=== PATIENT | male | born 1970 | race Two or more races ===

== ENCOUNTER → 2024-07-22 | Outpatient (CLI) | payer BC, SELFPAY ==
[2024-07-22 08:02] LABS: Collection Type, Urine Clean Catch
[2024-07-22 08:23] LABS: Basophils % (Auto) 1 % (0-2.5); Eosinophils # (Auto) 0.1 Thou/mm3 (0.0-0.5); Eosinophils % (Auto) 2 % (0-10); Hematocrit 44.3 % (41.0-53.0); Immature Granulocytes % (Auto) 0 % (0-0); Immature Granulocytes Auto 0.02 Thou/mm3 (0.00-0.00); Lymphocytes # (Auto) 1.6 Thou/mm3 (1.0-4.8); Lymphocytes % (Auto) 32 % (10-50); Mean Corpuscular HGB Conc 36.1 g/dl (31.0-37.0); Mean Corpuscular Hemoglobin 30.9 pg (25.0-35.0); Mean Corpuscular Volume 86 fL (80-100); Monocytes # (Auto) 0.5 Thou/mm3 (0.0-0.8); Monocytes % (Auto) 9 % (0-12); Neutrophils # (Auto) 2.8 Thou/mm3 (1.8-7.7); Neutrophils % (Auto) 56 % (37-80); Nucleated Red Blood Cell % 0 /100 WBC (0); Platelet Count 198 Thou/mm3 (140-440); RDW Standard Deviation 39.9 fL (35.1-43.9); Red Blood Count 5.18 Miln/mm3 (4.50-5.90); White Blood Count 5.1 Thou/mm3 (3.8-10.6)
[2024-07-22 08:36] LABS: Glucose Estimated Average 108 mg/dL (80-131); Hemoglobin A1C 5.4 % Hgb (4.8-6.0)
[2024-07-22 08:38] LABS: Bilirubin,Urine Negative (Negative); Blood,Urine Negative (Negative); Clarity,Urine Clear (Clear/Hazy); Color,Urine Lt-Yellow (Lt Yel-Yel); Culture Indicated,Urine Not Indicated; Glucose, Urine Negative (Negative); Ketones,Urine Negative (Negative); Leukocyte Esterase,Urine Negative (Negative); Nitrite,Urine Negative (Negative); Protein,Urine Negative (Neg - Trace); RBC,Urine 2 /hpf (0-3); Specific Gravity,Urine 1.019 (1.001-1.035); Squamous Epithelial Cell,Urine < 1 /hpf (0-5); Urobilinogen,Urine Negative mg/dL (0.0-1.0); WBC,Urine 2 /hpf (0-5)
[2024-07-22 08:43] LABS: Prostate Specific Antigen 0.82 ng/mL (0-4.00)
[2024-07-22 08:47] LABS: Vitamin D 25 Hydroxy Total 17.5 ng/mL (7.3-40.2)
[2024-07-22 08:50] LABS: Alanine Aminotransferase 32 U/L (10-49); Albumin, Serum 4.7 gm/dL (3.5-5.0); Alkaline Phosphatase 65 U/L (46-116); Anion Gap 8 (7-16); Aspartate Amino Transferase 24 U/L (0-34); BUN/Creatinine Ratio 11 Ratio (12-20); Bilirubin,Total 0.8 mg/dL (0.3-1.2); Blood Urea Nitrogen 11 mg/dL (9-23); Calcium 9.7 mg/dL (8.3-10.6); Calcium (Corrected) 9.7 mg/dL (8.5-10.1); Carbon Dioxide 30.8 mMol/L (20.0-31.0); Cardiac Risk Estimate 3.7 RATIO (4.0-6.7); Chloride 100 mMol/L (98-107); Cholesterol 206 mg/dL (132-200); Globulin 2.3 gm/dL (2.3-3.5); Glucose 112 mg/dL (74-106); HDL Cholesterol 56 mg/dL (40-60); LDL Cholesterol,Calculated 126 mg/dL (0-130); Osmolality,Calculated 277 (275-295); Potassium 3.5 mMol/L (3.4-5.1); Sodium 139 mMol/L (136-145); Triglycerides 118 mg/dL (30-150); eGFR > 60 See Note
== END | disposition home or self-care (01) ==
LOC: COPL 07:26
PROVIDERS: PCP Family Medicine; Referring Provider Registered Nurse; Visit Provider Registered Nurse
DX: Z00.00 Encounter for general adult medical examination without abnormal findings (principal); E78.2 Mixed hyperlipidemia
CPT/HCPCS: 36415; 80053; 80061; 81001; 82306; 83036; 84153; 84443; 85025

== ENCOUNTER 2024-08-11 05:55 | Day surgery (SDC) | payer BC, SELFPAY ==
--- NOTE | 2024-08-07 07:00 | EKG_ITS ---
[facility] Test Date: 2024-08-07 Pat Name: ANTONIO SOTO Department: Room: - Gender: Male Apple Picker: JAY : [phone] Requested By: Colin Castano Order Number: [id number] Reading MD: Colin Castano Measurements Intervals [place] Rate: 60 P: 30 [place]: 164 QRS: 28 QRSD: 106 T: 28 QT: 403 QTc: 403 Interpretive Statements SINUS RHYTHM Compared to ECG 03/01/2021 10:19:01 Sinus bradycardia no longer present /store/S0/[id number].pdf
[2024-08-07 07:38] VITALS: BMI 39.2
[2024-08-07 10:18] LABS: Basophils % (Auto) 1 % (0-2.5); Eosinophils # (Auto) 0.1 Thou/mm3 (0.0-0.5); Eosinophils % (Auto) 2 % (0-10); Hematocrit 44.9 % (41.0-53.0); Hemoglobin 16.6 g/dL (13.5-16.0); Immature Granulocytes % (Auto) 0 % (0-0); Immature Granulocytes Auto 0.02 Thou/mm3 (0.00-0.00); Lymphocytes # (Auto) 1.6 Thou/mm3 (1.0-4.8); Lymphocytes % (Auto) 34 % (10-50); Mean Corpuscular Volume 84 fL (80-100); Monocytes # (Auto) 0.5 Thou/mm3 (0.0-0.8); Monocytes % (Auto) 10 % (0-12); Neutrophils # (Auto) 2.6 Thou/mm3 (1.8-7.7); Neutrophils % (Auto) 54 % (37-80); Nucleated Red Blood Cell % 0 /100 WBC (0); Platelet Count 200 Thou/mm3 (140-440); RDW Standard Deviation 38.8 fL (35.1-43.9); Red Blood Count 5.35 Miln/mm3 (4.50-5.90); White Blood Count 4.9 Thou/mm3 (3.8-10.6)
[2024-08-07 10:38] LABS: Alanine Aminotransferase 37 U/L (10-49); Albumin, Serum 5.1 gm/dL (3.5-5.0); Alkaline Phosphatase 66 U/L (46-116); Anion Gap 8 (7-16); Aspartate Amino Transferase 29 U/L (0-34); BUN/Creatinine Ratio 11 Ratio (12-20); Bilirubin,Total 0.9 mg/dL (0.3-1.2); Blood Urea Nitrogen 12 mg/dL (9-23); Calcium 9.9 mg/dL (8.3-10.6); Calcium (Corrected) 9.9 mg/dL (8.5-10.1); Carbon Dioxide 30.2 mMol/L (20.0-31.0); Chloride 102 mMol/L (98-107); Creatinine (Component) 1.1 mg/dL (0.6-1.3); Estimated Creatinine Clearance 100.3 mL/min (>60); Globulin 2.5 gm/dL (2.3-3.5); Glucose 95 mg/dL (74-106); Osmolality,Calculated 279 (275-295); Potassium 3.9 mMol/L (3.4-5.1); Sodium 140 mMol/L (136-145); Total Protein 7.6 gm/dL (5.7-8.2); eGFR > 60 See Note
--- NOTE | 2024-08-10 14:08 | SUR.PREOP ---
Pt notified to come in at 0600 tomorrow for surgery.
[2024-08-11 06:59] VITALS: BP 145/95; PULSE 80; RESP 14; TEMP 36.6; O2SAT 96; BMI 38.7
[2024-08-11] MEDS: RINGERS LACTATED 1000 ML 1,000 ML 20 ML IV (07:12)
--- NOTE | 2024-08-11 08:54 | PD.SUROPNT ---
Date of Procedure 08/11/24 Pre Op Diagnosis Right upper arm soft tissue mass Post Op Diagnosis Right upper arm subfascial soft tissue mass Procedure Excision of subfascial soft tissue mass from right upper arm Findings An approximately 4 cm subfascial soft tissue mass of right upper arm Procedure Description Patient brought into the operating room in supine position. After administration of monitored anesthesia care, patient's right upper arm prepped and draped in standard surgical manner. The mass was palpated noted to be on the lateral aspect of upper right arm. After administration of local anesthesia a 4 cm elliptical incision was made and dissection was deepened into soft tissue. The fascia was opened and the underlying mass was excised circumferentially from underlying muscle and surrounding soft tissue. The wound was washed and irrigated. The mass was measuring to be approximately 4 cm in diameter, lipomatous in nature. Fascia reapproximated with interrupted sutures using 2-0 Vicryl. Subcutaneous tissue closed with interrupted sutures using 2-0 Vicryl and the incision was closed with 4-0 Monocryl in subcuticular fashion. Dermabond and sterile dressings applied. Patient tolerated the procedure well. He was breathing spontaneously and without difficulty and was transferred to postanesthesia care in stable condition. Instruments, needles and sponge counts were reported to be correct x 2. Anesthesia MAC and local Pathology / specimen Other (Right upper arm soft tissue mass) Estimated Blood Loss 2 Condition Stable Disposition PACU Surgeon Colin Castano MD Surgical Staff Operation Date: 08/11/24 08:00 <No data on this case meets the specified criteria>
[2024-08-11 09:02] VITALS: BP 137/87; PULSE 73; RESP 19; TEMP 36.2; O2SAT 97
--- NOTE | 2024-08-11 09:04 | SUR.PHASEII ---
0902: Pt. AAOx4, vitals stable, breathing unlabored, no complaint of pain or nausea, dressing to right upper arm CDI, no active bleed noted, pt. able to move bilateral hands, bilateral radial pulses strong and regular, report received from MD Jiménez and Mitch LEUNG.
[2024-08-11 09:07] VITALS: BP 138/95; PULSE 69; RESP 20; TEMP 36.6; O2SAT 96
[2024-08-11 09:12] VITALS: BP 138/94; PULSE 69; RESP 20; TEMP 36.5; O2SAT 97
[2024-08-11 09:17] VITALS: BP 131/85; PULSE 66; RESP 16; TEMP 36.5; O2SAT 96
[2024-08-11 09:32] VITALS: BP 132/83; PULSE 63; RESP 20; TEMP 36.4; O2SAT 97
--- NOTE | 2024-08-11 09:37 | SUR.PHASEII ---
0937: Pt. AAOx4, vitals stable, breathing unlabored, no complaint of pain or nausea, dressing to right upper arm CDI, no active bleed noted, pt. tolerated sips of soda well, pt. ambulated to wheelchair with steady gait and no assist, no complications. Gave discharge instructions to the pt. and his ride, both verbalized understanding and had no further questions. Pt. left with all personal belongings.
== END 2024-08-11 09:37 | disposition home or self-care (01) ==
PROVIDERS: Anesthesiology; PCP Family Medicine; Referring Provider Surgery; Visit Provider Surgery
PROC: (CPT 24076; principal; 2024-08-11 08:00)
DX: D17.21 Benign lipomatous neoplasm of skin and subcutaneous tissue of right arm (principal); Z01.810 Encounter for preprocedural cardiovascular examination; M10.9 Gout, unspecified; I10 Essential (primary) hypertension
CPT/HCPCS: 24076; 36415; 80053; 85025; 93005; A4217; A4649; J0690; J2250; J2704; J3010; J3490; J7120